=== PATIENT | female | born 1970 | race African-American/Black ===

== ENCOUNTER 2017-02-11 11:41 | Emergency (ER) | payer MEDICARE ==
--- NOTE | ~2017-02-11 | CT2 ---
[facility] A Service of [facility] RADIOLOGY TEXT RESULTS PATIENT: SUNG QUEEN LOCATION: [facility] : 70 UNIT #: [id number] AGE: [address]: Catarina Ballesteros MD SEX: F ORDER DR: [id number] [facility] [address] [place], [place] [address] [id number] MR#: [id number] Acc #: [id number] NAME: SUNG QUEEN. : 1970 SEX: F STUDY DATE/TIME: 02/11/2017 14:56 UNIT: [facility] ROOM: STUDY DESCRIPTION: CT Abd and Pelv W Cont Attending Physician: Catarina Ballesteros M.D. Ordering Physician: Jhonathan Barrett M.D. Primary Care Physician: Amelia Guardado M.D. MEDICAL IMAGING REPORT This report is preliminary unless electronic signature is present EXAM CT abdomen and pelvis with IV contrast HISTORY Right abdomen and flank pain today. TECHNIQUE CT abdomen and pelvis was performed with IV contrast. This CT exam was performed with one or more of the following radiation dose reduction techniques: automatic exposure control, adjustment of mA and/or kV according to patient size, and iterative reconstruction. FINDINGS CT ABDOMEN: The liver, spleen, pancreas, left kidney, and adrenal glands are normal. 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 No hydronephrosis. No perinephric stranding. CT PELVIS: No pelvic mass or fluid collection. Normal appendix. Hysterectomy. The urinary bladder is normal. Lower lumbar fusion with posterior hardware fixation at L4-L5 and intervertebral bony fusion at L5-S1. IMPRESSION 1. No acute findings. 2. No urinary obstruction or bowel obstruction. 3. Normal appendix. 4. Cholecystectomy and hysterectomy and lower lumbar fusion. Dictated by... Nic Riley M.D. [facility] A Service of [facility] & [facility] RADIOLOGY TEXT RESULTS PATIENT: SUNG QUEEN LOCATION: [facility] : 70 UNIT #: [id number] AGE: [address]: Catarina Ballesteros MD SEX: F ORDER DR: THIS IS AN ELECTRONICALLY VERIFIED REPORT Nic Irwin Riley M.D. at 02/11/2017 10:39 PM VANNESSA/leopoldo TD: 02/11/2017 19:39 JOB #: [id number] MEDICAL IMAGING REPORT Page 1 of 1 COPY
[~2017-02-11 11:41] MED LIST: ACETAMINOP650 MG/SU1 RC; ACETAMINOPHEN PO; ACTOPLUS MET 151 TA2 PO; ACTOPLUS PO; ACTOS PO; ADVAIR 2501 DISK W/D PO; ALBUTEROL; ALBUTEROL17 G1 IH; ALBUTEROL17 GM INH; ALBUTEROL2.5 MG/0.5 INH; AMBIEN CR PO; AMBIEN PO; AMOXICILLIN PO; AMOXICILLIN875 MG PO; ATARAX; AUGMENTIN PO; AUGMENTIN875 MG PO; AVANDIA PO; AVELOX400 MG PO; BENADRYL ALLERG25 M1 PO; BENADRYL25 MG PO; BENZONATATE PO; BYDUREON P2 MG/0.65 SQ; CELEXA PO; CIPRO PO; CITALOPRAM HBR40 MG PO; CLONAZEPAM0.5 MG PO; COLACE PO; COMBIVENT U/D3 M2 INH; CORTISONE14 GM TP; COUMADIN10 MG PO; COUMADIN7.5 MG PO; CYMBALTA PO; DETROL LA PO; DETROL PO; DICYCLOMINE HCL20 MG PO; DIFLUCAN PO; DIFLUCAN100 MG PO; DOXEPIN HCL100 MG PO; DOXEPIN HCL50 MG PO; DOXEPIN PO; DOXYCYCLINE HY100 M1 PO; EFFEXOR; EFFEXOR XR PO; EFFEXOR XR150 MG PO; EFFEXOR37.5 MG PO; EFFEXOR75 M1 PO; ESTRATEST PO; ESTRATEST TABLE1 TAB PO; ESTRGN METHTEST; ESTROGEN; ESTROTEST; FISH OIL 1,0001 CAP PO; FLEXERIL; FLEXERIL PO; FLEXERIL10 M1 PO; FLEXERIL10 MG PO; GABAPENTIN300 MG PO; GENTLE LAXATIVE10 MG RC; GEODAN PO; GLUCOPHAGE XR500 MG PO; GLUCOPHAGE XR750 MG PO; GLUCOPHAGE500 M1 PO; GLUCOPHAGE850 MG PO; HUMALOG100 U/ML SUBQ; HUMULIN 70/30 V10 ML; HYDROCODON-ACE1 EAC5 PO; JANUVIA PO; KEFLEX PO; KEFLEX500 M1 PO; KEFLEX500 MG PO; KLONOPIN PO; KLONOPIN0.5 M1 PO; KLONOPIN0.5 MG PO; KLONOPIN1 MG PO; LANTUS SOLOSTAR3 ML SUBQ; LANTUS SUBQ; LANTUS100 U/M1 SQ; LANTUS100 U/ML SUBQ; LEVAQUIN PO; LEVEMIR FL100 UNIT/1; LEVEMIR FL100 UNIT/1 SQ; LEVEMIR SUBQ; LEVEMIR100 U/ML SUBQ; LEVEMIR100 UNITS/ SUBQ; LEXAPRO PO; LINZESS; LINZESS145 MCG PO; LINZESS290 MCG PO; LIPITOR; LOPRESSOR PO; LORTAB 101 TAB 10/5 PO; LORTAB 7.5-5001 TAB PO; LYRICA PO; MACROBID 100 M100 MG PO; METFORMIN HCL750 MG PO; METFORMIN HCL850 MG PO; METFORMIN PO; METHADONE HCL10 MG PO; METHADONE PO; METHADOSE10 MG PO; MIRAPEX0.25 MG DOB; MIRAPEX0.25 MG PO; MORPHINE IR PO; MS CONTIN PO; MUCINEX DM1 TAB.SR . PO; NARCO PO; NEURONTIN PO; NEURONTIN300 MG PO; NEURONTIN600 MG PO; NEURONTIN800 MG PO; NICOTINE TRANSD21 MG EXT; NOVOLOG FL100 UNIT/1; NOVOLOG FL100 UNIT/1 SUBQ; NOVOLOG MI100 UNIT/1 SQ; NOVOLOG SUBQ; NOVOLOG100 U/ML; NOVOLOG100 U/ML SUBQ; NOVOLOG100 UNITS/ INJ; NOVOLOG100 UNITS/ SUBQ; NOVOLOG7030 SUBQ; OPANA ER; OPANA ER PO; OPANA ER40 MG PO; OPANA10 MG PO; OXYCODONE; OXYGEN; PERCOCET PO; PERCOCET10 PO; PERCOCET5/325 PO; PHENERGAN; PHENERGAN PO; PHENERGAN SUPP25 M1 PR; PHENERGAN25 MG PO; PHYSICIAN; PREDNISONE PO; PREMPHASE 0.621 EACH PO; PROAIR RESPICL90 MCG; PROTONIX PO; PROZAC40 MG PO; REGLAN PO; ROBAXIN 750750 M1 DOB; ROBAXIN 750750 M1 PO; ROBAXIN 750750 MG PO; ROBITUSSIN ALL118 ML PO; SANTYL15 G1 TP; SEROQUEL PO; SEROQUEL400 MG PO; SINGULAIR PO; SPIRIVA18 MCG INH; STOMACH PILL; SYMBICORT INH; TYLENOL/CODEINE1 TA1 PO; VANCOMYCIN1.25 GM/15 IV; VENLAFAXINE HC150 MG PO; VIBRAMYCIN100 M1 DOB; VIBRAMYCIN100 M1 PO; VOLTAREN75 MG PO; WALGREENS; WELLBUTRIN PO; XARELTO15 MG PO; ZANTAC150 MG PO; ZITHROMAX PO; ZOCOR10 MG PO; [UNRECOGNIZED DRUG - CODE]; [UNRECOGNIZED DRUG - OTHER]; [UNRECOGNIZED DRUG - REMARK]
[2017-02-11 13:13] LABS: URINE SOURCE CLEAN CATCH
[2017-02-11 13:19] LABS: BASOPHIL# 0.1 X10e3 (0-0.3); BASOPHIL% 1.3 % (0-2.5); EOSINOPHIL# 0.1 X10e3 (0-0.7); EOSINOPHIL% 1.3 % (0.0-7.0); HEMATOCRIT 39.2 % (35.0-45.0); HEMOGLOBIN 12.7 gm/dL (12.0-16.0); LYMPHOCYTE# 3.4 X10e3 (1.0-3.5); LYMPHOCYTE% 41.5 % (17.0-45.0); MEAN CELL VOLUME 83.8 FL (83-96); MEAN CORPUSCULAR HEMOGLOBIN 27.3 PG (28-34); MEAN CORPUSCULAR HGB CONC 32.6 g/dL (30-36); MEAN PLATELET VOLUME 8.8 FL (6.5-11.5); MONOCYTE# 0.6 X10e3 (0-1.0); MONOCYTE% 6.8 % (3.0-12.0); NEUTROPHIL# 4.1 X10e3 (1.5-7.1); NEUTROPHIL% 49.1 % (40-75); PLATELET COUNT 206 X10e3 (140-420); RED BLOOD COUNT 4.67 X10e (3.90-5.30); RED CELL DISTRIBUTION WIDTH 15.2 % (11.0-15.5); WHITE BLOOD COUNT 8.3 X10e3 (4.0-10.5)
[2017-02-11 13:27] LABS: DIFF IND NO
[2017-02-11 13:51] LABS: URINE APPEARANCE CLEAR; URINE BILIRUBIN NEG (NEG); URINE BLOOD NEG (NEG); URINE COLOR YELLOW; URINE GLUCOSE NEG (NEG); URINE KETONE NEG (NEG); URINE LEUKOCYTE ESTERASE TRACE (NEG); URINE NITRATE NEG (NEG); URINE PROTEIN NEG (NEG); URINE SPECIFIC GRAVITY 1.017 (1.003-1.035); URINE UROBILINOGEN 0.2 MG/DL (NEG)
[2017-02-11 13:54] LABS: URBCS1 AUWI 0-2 /[HPF] (0-2); URINE BACTERIA AUWI NEG (NEGATIVE); URINE SQUAMOUS EPITHELIAL CELL OCC /[HPF]
[2017-02-11 13:56] LABS: ALBUMIN SERUM 4.4 g/dL (3.5-5.0); BILIRUBIN, DIRECT 0.1 mg/dL (0.0-0.2); BILIRUBIN,INDIRECT 0.5 mg/dL (0.0-0.9); BILIRUBIN,TOTAL 0.6 mg/dL (0.2-2.0); BUN/CREATININE RATIO 13.75; CALCIUM SERUM 9.2 mg/dL (8.4-10.2); CREATININE SERUM 0.8 mg/dL (0.6-1.4); GLOM FILT RATE Estimated 102.6 mL/min (>60); POTASSIUM 4.3 mmol/L (3.5-5.1); PROTEIN TOTAL SERUM 7.6 g/dL (6.0-8.3)
[2017-02-11 14:02] LABS: CULTURE INDICATED? NO
== END 2017-02-11 17:10 | disposition home or self-care (01) ==
LOC: CED 11:41
PROVIDERS: Emergency Medicine
DX: R10.84 Generalized abdominal pain (principal); J45.909 Unspecified asthma, uncomplicated; F17.200 Nicotine dependence, unspecified, uncomplicated; Z87.19 Personal history of other diseases of the digestive system
CPT/HCPCS: 36415; 74177; 80048; 80076; 81003; 82150; 82947; 83690; 84703; 85025; 96361; 96372; 96374; 99284; J0500; Q9967